=== PATIENT | female | born 1970 | race Two or more races ===

== ENCOUNTER 2021-12-21 07:31 | Emergency (ER) | payer OTHER ==
[2021-12-21 07:50] VITALS: BP 156/87; PULSE 68; RESP 18; TEMP 97.7; BMI 42.7
[2021-12-21] MEDS ORDERED: METOCLOPRAMIDE HCL INJECTION 10 MG/2 ML VIAL IVPUSH ONE (08:42)
[2021-12-21] MEDS ORDERED: METOCLOPRAMIDE HCL INJECTION 10 MG/2 ML VIAL ONE (09:01)
== END 2021-12-21 11:30 | disposition home or self-care (01) ==
LOC: JER 07:31
PROC: 3E033GC Introduction of Other Therapeutic Substance into Peripheral Vein, Percutaneous Approach (ICD-10-PCS; principal; 2021-12-21)
DX: R51.9 Headache, unspecified (principal)
CPT/HCPCS: 70450-TC; 99284-25

== ENCOUNTER 2022-03-21 11:58 | Emergency (ER) | payer OTHER ==
[2022-03-21 12:01] VITALS: BP 118/64; PULSE 62; RESP 18; TEMP 97.8; BMI 40.2
[2022-03-21] MEDS ORDERED: IBUPROFEN 600 MG TABLET (FP) PO ONE ×2 (12:42→12:46)
== END 2022-03-21 13:16 | disposition home or self-care (01) ==
LOC: JER 11:58 → JERFT 11:58
DX: S93.402A Sprain of unspecified ligament of left ankle, initial encounter (principal); W10.8XXA Fall (on) (from) other stairs and steps, initial encounter; X50.0XXA Overexertion from strenuous movement or load, initial encounter
CPT/HCPCS: 73610-TC-LT-FY; 73630-TC-LT; 99283-25

== ENCOUNTER 2022-06-19 22:55 | Emergency (ER) | payer OTHER ==
[~2022-06-19 22:55] MED LIST: LIDOCAINE PATCH REMOVAL MC SCH
[2022-06-19 23:03] VITALS: BP 148/83; PULSE 86; RESP 19; TEMP 98.1; BMI 27.1
[2022-06-19] MEDS ORDERED: KETOROLAC TROMETHAMINE 30 MG/1 ML VIAL IM ONE (23:22)
[2022-06-19] MEDS ORDERED: LIDOCAINE 5% TOPICAL PATCH TP ONE (23:22)
[2022-06-19] MEDS ORDERED: LIDOCAINE 5% TOPICAL PATCH ONE (23:27)
[2022-06-19] MEDS ORDERED: KETOROLAC TROMETHAMINE 30 MG/1 ML VIAL ONE (23:27)
[2022-06-19] MEDS ORDERED: diazePAM 5 MG TABLET PO ONE (23:30)
[2022-06-19] MEDS ORDERED: diazePAM 5 MG TABLET ONE (23:44)
== END 2022-06-20 01:17 | disposition home or self-care (01) ==
LOC: JER 22:55
PROC: 3E0233Z Introduction of Anti-inflammatory into Muscle, Percutaneous Approach (ICD-10-PCS; principal; 2022-06-19)
DX: M54.50 Low back pain, unspecified (principal); G89.29 Other chronic pain; S33.5XXA Sprain of ligaments of lumbar spine, initial encounter; X58.XXXA Exposure to other specified factors, initial encounter; Y99.0 Civilian activity done for income or pay
CPT/HCPCS: 72131-TC; 99284-25